=== PATIENT | male | born 1955 | race African-American/Black ===

== ENCOUNTER 2018-10-03 15:28 | Inpatient (IN) | payer MEDICAID ==
[~2018-10-03] VITALS: Ht 182.9 cm; Wt 73.9 kg
[2018-10-03] MEDS ORDERED: PIPERACILLIN/TAZ 3.375G PREMIX 50 ML IV ONE (16:00)
[2018-10-03] MEDS ORDERED: SODIUM CHLORIDE 0.9% 1000ML BAG (SEPSIS BOLUS) IV ONE (16:00)
[2018-10-03] MEDS ORDERED: VANCOMYCIN 1 G PREMIX 200 ML IV ONE (16:00)
[2018-10-03 16:24] LABS: CHLORIDE 106 mEq/L (98-107)
[2018-10-03 16:38] LABS: EOSINOPHILS % 2.5 % (0.0-5.0); HEMATOCRIT. 28.5 % (42.0-52.0); HEMOGLOBIN. 9.4 g/dL (14.0-18.0); LYMPHOCYTES % 25.9 % (20.0-50.0); MEAN CORPUSCULAR HEMOGLOBIN 29.6 pg (28.0-32.0); MEAN CORPUSCULAR VOLUME 89.9 fL (80.0-94.0); NEUTROPHILS % 62.6 % (40.0-76.0); PLATELET 297 x1000/uL (130-400); RED BLOOD CELL COUNT 3.18 mill/uL (4.7-6.1); RED CELL DISTRIBUTION WIDTH 14.9 % (11.6-14.6)
[2018-10-03 17:49] LABS: CLARITY URINE CLEAR (CLEAR); COLOR URINE YELLOW (YELLOW); KETONES URINE NEGATIVE (NEGATIVE); LEUKOCYTE ESTERASE URINE NEGATIVE (NEGATIVE); NITRITE URINE NEGATIVE (NEGATIVE); OCCULT BLOOD URINE NEGATIVE (NEGATIVE); PROTEIN URINE NEGATIVE (NEGATIVE); SPECIFIC GRAVITY URINE 1.012 (1.005-1.030); UROBILINOGEN URINE 0.2 E.U./dL (0.2-1.0)
[2018-10-03] MEDS ORDERED: POTASSIUM CHLORIDE 20MEQ TABLET SR PO ONE (19:15)
[2018-10-03] MEDS ORDERED: DOCUSATE SODIUM 100MG CAPSULE PO PRN (20:00)
[2018-10-03] MEDS ORDERED: ACETAMINOPHEN 325MG TABLET PO PRN (20:00)
[2018-10-03] MEDS ORDERED: MAGNESIUM/ALUMINUM HYDROXIDE/SIMETHICONE 30ML UDC PO PRN (20:00)
[2018-10-03] MEDS ORDERED: LORAZEPAM 0.5MG TABLET PO PRN (20:00)
[2018-10-03] MEDS ORDERED: CLONIDINE 0.1MG TABLET PO PRN (20:00)
[2018-10-03] MEDS ORDERED: ZOLPIDEM TARTRATE 5MG TABLET PO PRN (20:00)
[2018-10-03] MEDS ORDERED: IPRATROPIUM/ALBUTEROL 0.5-3(2.5)MG/3ML NEB INH PRN (20:00)
[2018-10-03] MEDS ORDERED: PIPERACILLIN/TAZ 3.375G PREMIX 50 ML IV SCH (20:00)
[2018-10-03] MEDS ORDERED: ONDANSETRON HCL 4MG/2ML INJ IV PRN (20:00)
[2018-10-03] MEDS ORDERED: GUAIFENESIN 200MG/10ML SUGAR FREE UDC PO PRN (20:00)
[2018-10-03] MEDS ORDERED: KETOROLAC 15MG/ML VIAL IV PRN (20:00)
[2018-10-03 21:11] LABS: FOLIC ACID (FOLATE) SERUM 9.7 ng/mL (>5.38)
[2018-10-03 22:19] LABS: TOTAL IRON BINDING CAPACITY 204 ug/dL (250-450)
[2018-10-03 22:20] VITALS: BP 178/99
[2018-10-03 22:20] LABS: LDL CHOLESTEROL 80 mg/dL (5-100)
[2018-10-03 22:22] LABS: HDL CHOLESTEROL 45 mg/dL (40-59)
[2018-10-03] MEDS: ASCORBIC ACID 500 MG TABLET PO SCH (23:47)
[2018-10-04] MEDS ORDERED: POTASSIUM CHLORIDE 20MEQ TABLET SR PO NR
[2018-10-04 00:30] LABS: CREATINE KINASE MB FRACTION < 1.0 ng/mL (0.5-3.6)
[2018-10-04] MEDS: PIPERACILLIN/TAZ 3.375G PREMIX 50 ML IV SCH ×2 (00:33→08:00)
[2018-10-04] MEDS: FAMOTIDINE 20MG TABLET PO SCH ×2 (00:56→09:00)
[2018-10-04] MEDS ORDERED: VANCOMYCIN 1500MG in DEXTROSE 5% WATER 250ML IV SCH (01:00)
[2018-10-04] MEDS ORDERED: HYDR12.529 PO ×2 (01:52→05:36)
[2018-10-04] MEDS ORDERED: ASPI-1158 PO (01:52)
[2018-10-04] MEDS ORDERED: TRAMADOL 50MG TABLET PO PRN (03:45)
[2018-10-04 04:00] VITALS: BP 126/71
[2018-10-04 07:04] LABS: ETHANOL BLOOD < 10 mg/dL
[2018-10-04 07:10] LABS: CREATINE KINASE MB FRACTION < 1.0 ng/mL (0.5-3.6)
[2018-10-04 08:00] VITALS: BP 117/68
[2018-10-04] MEDS ORDERED: ASPIRIN 325MG EC TABLET PO SCH (09:00)
[2018-10-04] MEDS ORDERED: ENOXAPARIN 40MG/0.4ML SYR SUBCUT SCH (09:00)
[2018-10-04] MEDS ORDERED: ZINC SULFATE 220 MG ( 50 ) CAPSULE PO SCH (09:00)
[2018-10-04] MEDS: ASCORBIC ACID 500 MG TABLET PO SCH (09:00)
[2018-10-04 11:30] LABS: *AMPHETAMINES SCREEN URINE NEGATIVE (NEGATIVE); *BARBITURATES SCREEN URINE NEGATIVE (NEGATIVE); *BENZODIAZEPINES SCREEN URINE NEGATIVE (NEGATIVE); *COCAINE SCREEN URINE NEGATIVE (NEGATIVE); METHADONE URINE SCREEN NEGATIVE (NEGATIVE); OPIATES URINE SCREEN PRESUMTIVE POSITIVE (NEGATIVE); PHENCYCLIDINE URINE SCREEN NEGATIVE (NEGATIVE)
[2018-10-04 11:31] LABS: CANNABINOID URINE SCREEN PRESUMTIVE POSITIVE (NEGATIVE)
== END 2018-10-04 11:20 | disposition left against medical advice (07) | DRG 720 ==
LOC: ER 15:28 → 8WST 19:11 → EDBEDREQ 19:27 → EDBEDREQTM 19:27 → EDBEDREQSVC 19:27 → ENRESERV 20:47
PROVIDERS: ADMIT Internal Medicine; ATTEND Internal Medicine
DX: A41.9 Sepsis, unspecified organism (principal); I96 Gangrene, not elsewhere classified; D64.9 Anemia, unspecified; E87.6 Hypokalemia; I10 Essential (primary) hypertension; Z53.21 Procedure and treatment not carried out due to patient leaving prior to being seen by health care provider; L03.032 Cellulitis of left toe; Z79.899 Other long term (current) drug therapy
CPT/HCPCS: 36415; 71045; 73620; 80061; 80305; 80320; 82553; 82607; 82746; 83036; 83540; 83550; 83605; 84484; 93005; 93923; 93970; 99285; C1893; J1650; J1885; J2543; J3370; J7030; J7060; G0480